=== PATIENT | female | born 1945 | race Caucasian/White ===

== ENCOUNTER 2016-10-18 09:54 | Outpatient (CLI) | payer OTHER, MEDICARE ==
[~2016-10-18 09:54] MED LIST: ALEVE220 MG PO; DILTIAZEM HCL120 M2 PO; LEVOTHYROXINE100 MCG PO; NORCO1 TA1 PO
--- NOTE | 2016-10-18 12:15 | DIAGNOSTIC IMAGING REPORT ---
PROCEDURE: MG UNILAT SCREEN-LEFT W/CAD INDICATION: Left screening, personal history of right breast cancer status post mastectomy. TECHNIQUE: Standard CC and MLO views of the left breast. Computer aided detection was used. COMPARISON: 10/18/2015, 09/12/2014, 09/06/2013 FINDINGS: Moderately dense fibroglandular tissue is present. No developing densities, areas of architectural distortion, or suspicious microcalcifications. IMPRESSION: 1. Stable left breast mammograms without radiographic evidence of malignancy. RESULT CODE: 1- Negative. A. A negative report should not delay biopsy if a dominant or clinically suspicious mass is present. 10-15% of cancers are not identified by x-ray. B. A negative report may reinforce clinical impression. C. Adenosis and dense breasts may obscure an underlying neoplasm. D. False positive reports average 6-10%. E.. A yearly screening mammogram is recommended. A reminder letter will be scheduled.
== END 2016-10-18 23:00 | disposition home or self-care (01) ==
LOC: MAM SRH 09:54
DX: Z12.31 Encounter for screening mammogram for malignant neoplasm of breast (principal); Z85.3 Personal history of malignant neoplasm of breast